=== PATIENT | female | born 1935 | race Caucasian/White ===

== ENCOUNTER → 2016-10-23 | Outpatient (CLI) | payer MEDICARE, MEDICAID ==
[~2016-10-23] MED LIST: AMLODIPINE BESYL5 MG PO; AMOXICILLIN500 MG PO; BIAXIN500 MG PO; ELAVIL10 MG PO; LEVOTHROID (S112 MCG PO; LIPITOR20 M1 PO; PRILOSEC20 MG PO
== END | disposition disaster alternative care site (69) ==
LOC: GAMB 09:24
DX: R11.2 Nausea with vomiting, unspecified (principal); C79.31 Secondary malignant neoplasm of brain; C80.1 Malignant (primary) neoplasm, unspecified; R42 Dizziness and giddiness; H53.8 Other visual disturbances; E03.9 Hypothyroidism, unspecified; J44.9 Chronic obstructive pulmonary disease, unspecified

== ENCOUNTER → 2017-02-16 | Outpatient (CLI) | payer MEDICARE, MEDICAID | END | disposition disaster alternative care site (69) | LOC: GOPD 02-09 | DX: C18.5 Malignant neoplasm of splenic flexure (principal); C82.09 Follicular lymphoma grade I, extranodal and solid organ sites; K76.0 Fatty (change of) liver, not elsewhere classified; R91.1 Solitary pulmonary nodule; Z98.890 Other specified postprocedural states | CPT/HCPCS: J2001; J7030; Q9967 ==